=== PATIENT | male | born 1950 | race Caucasian/White ===

== ENCOUNTER 2021-07-04 01:24 | Inpatient (IN) | payer MEDICARE ==
[~2021-07-04] VITALS: Ht 180.3 cm; Wt 94.8 kg
--- NOTE | 2021-07-04 01:31 | NUR ---
MARIALUISA JUNE CALLED AND MESSAGE LET
--- NOTE | 2021-07-04 02:06 | NUR ---
MRSA SWAB FROM [facility] COLLECTED AND SENT TO LAB
--- NOTE | 2021-07-04 02:29 | NUR ---
PHONED SHAYLEE, MESSAGE LEFT
--- NOTE | 2021-07-04 03:40 | NUR ---
SHAYLEE PHONED, ETA 1 HR
--- NOTE | 2021-07-04 05:30 | NUR ---
[facility] NURSE SHAYLEE AT BEDSIDE
[2021-07-04] MEDS ORDERED: LORAZEPAM 1 MG TABLET ONE (05:38)
[2021-07-04] MEDS ORDERED: OLANZAPINE 10 MG VIAL IM ONE ×2 (05:58→06:00)
[2021-07-04] MEDS ORDERED: LORAZEPAM 1 MG TABLET PO ONE (06:00)
--- NOTE | 2021-07-04 06:14 | NUR ---
ROOM 214-2 AFTER CHANGE OF SHIFT
--- NOTE | 2021-07-04 06:58 | NUR ---
REPORT GIVEN TO AGNES HENLEY FOR MARIE
[2021-07-04] MEDS ORDERED: LEVO100T9 PO (07:04)
[2021-07-04] MEDS ORDERED: AMLO-212 PO (07:04)
[2021-07-04] MEDS ORDERED: SERT100T PO (07:04)
[2021-07-04] MEDS ORDERED: GALA12TA15 PO (07:04)
[2021-07-04] MEDS ORDERED: CLON0.5T4 PO (07:04)
--- NOTE | 2021-07-04 07:49 | NUR ---
PATIENT TRANSFERRED TO [facility], IN STABLE CONDITION.
[2021-07-04 08:00] VITALS: BP 145/96
--- NOTE | 2021-07-04 08:00 | NUR ---
GPS RN ADMITTING NOTE: PATIENT 71 Y/O MALE ADMITTED FROM [facility] PLACED ON 5150 FOR DTS,GD. PER HOLD PATIENT VERBALIZE SI, INCREASE ANXIETY.UPON FACE TO FACE ASSESSMENT PATIENT A/O X1 , CONFUSED, DISORGANIZED, UNABLE TO CONTROL HIS BEHAVIOR, EXTREMELY ANXIOUS,RESTLESS, NON COOPERATIVE. PATIENT DENIES SI/HI,DISHEVELED REFUSED ACCU CHECK AND SKIN ASSESSMENT, PT AMBULATORY.DR GTZ NOTIFIED WITH STANDING ORDER, HOME MEDS RECONCILED.ALL BELONGINGS AND CONTRABAND CHECKED. WILL CONTINUE MONITORING FOR SAFETY AND BEHAVIOR Q 15 MIN.
--- NOTE | 2021-07-04 08:22 | NUR ---
Sister Aleksandra was called and made aware of the admission and per sister and the per pt. he doesn't have an allergies on meds and food.
--- NOTE | 2021-07-04 08:29 | NUR ---
GPS/RN PT IS AGGRESSIVE, THREATENED THE MARKETING SUPPORT ASSISTANT OF THE NOTE:" I GOING TO BREAK YOUR FINGER". DR GTZ CALLED FOR THE ORDER, NEW ORDERS RECEIVED AND CARRIED OUT
[2021-07-04] MEDS ORDERED: BLOOD SUGAR DIAGNOSTIC 1 EACH STRIP IN ONE (08:30)
[2021-07-04] MEDS ORDERED: TEMAZEPAM 7.5 MG CAPSULE PO PRN (08:30)
[2021-07-04] MEDS ORDERED: MAG HYDROX/AL HYDROX/SIMETH 30 ML UDC PO PRN (08:30)
[2021-07-04] MEDS ORDERED: LORAZEPAM INJ 2 MG/ML VIAL IM ONE (08:30)
[2021-07-04] MEDS ORDERED: BENZTROPINE MESYLATE (2MG/2ML) 2 MG/2 ML AMPUL IM ONE (08:30)
[2021-07-04] MEDS ORDERED: LORAZEPAM 0.5 MG TABLET PO PRN (08:30)
[2021-07-04] MEDS ORDERED: ACETAMINOPHEN 325 MG TABLET PO PRN (08:30)
[2021-07-04] MEDS ORDERED: MAGNESIUM HYDROXIDE 30 ML UDC PO PRN (08:30)
[2021-07-04] MEDS ORDERED: HALOPERIDOL LACTATE INJ 5 MG/ML VIAL IM ONE (08:30)
[2021-07-04] MEDS: LEVOTHYROXINE SODIUM 100 MCG TABLET PO SCH (09:00)
[2021-07-04] MEDS: AMLODIPINE BESYLATE 5 MG TABLET PO SCH (09:00)
[2021-07-04] MEDS ORDERED: GALANTAMINE HYDROBROMIDE 8 MG TABLET PO SCH (10:00)
--- NOTE | 2021-07-04 11:41 | NUR ---
GPS RN NOTE: PATIENT WAS SEEN AND EXAMINE BY DR GTZ , PATIENT IN BED ASLEEP WITH HIS EYES CLOSED, BED ALARM ON BED IN LOWER POSITION. BP 124/80 P 54 WILL CONTINUE MONITORING
[2021-07-04] MEDS ORDERED: OLANZAPINE 2.5 MG TABLET PO PRN (12:00)
[2021-07-04 16:00] VITALS: BP 124/70
--- NOTE | 2021-07-04 16:14 | NUR ---
GPS/RN NOT MEDICATED FR 1700 PT APPEARS SLEEPING EXCESSIVELY. VSS. NO DISTRESS NOTED
[2021-07-04 16:15] LABS: BASOPHILS % (AUTO) 0.6 % (0.0-2.0); EOSINOPHILS % (AUTO) 3.2 % (0.0-6.0); HEMATOCRIT 39 % (39-51); LYMPHOCYTES # (AUTO) 1.4 K/uL (0.8-4.8); LYMPHOCYTES % (AUTO) 24.1 % (20.0-44.0); MEAN CORPUSCULAR HGB CONC 33 g/dl (31.0-36.0); MEAN CORPUSCULAR VOLUME 88 fL (80-96); MONOCYTES # (AUTO) 0.5 K/uL (0.1-1.30); MONOCYTES % (AUTO) 7.8 % (2.0-12.0); NEUTROPHILS # (AUTO) 3.8 K/uL (1.8-8.9); NEUTROPHILS % (AUTO) 64.3 % (43.0-81.0); PLATELET COUNT (AUTO) 194 K/uL (150-450); RED BLOOD CELL COUNT(AUTO) 4.46 MIL/uL (4.5-6.0); WHITE BLOOD COUNT (AUTO) 5.9 K/uL (4.3-11.0)
[2021-07-04 16:57] LABS: CALCIUM, SERUM 8.3 mg/dL (8.5-10.1); CREATININE 0.9 mg/dL (0.6-1.3)
[2021-07-04] MEDS ORDERED: SERTRALINE HCL 25 MG TABLET PO SCH (17:00)
[2021-07-04 17:56] VITALS: BP 149/83
--- NOTE | 2021-07-04 17:57 | NUR ---
Lab results reported to Dr. Keita and no new order. Addendum: 07/04/21 at 8318 by LAYO BOYLE RN Reported also the V/S
[2021-07-04 18:26] LABS: ALBUMIN 3.7 g/dL (3.4-5.0); BILIRUBIN,TOTAL 0.7 mg/dL (0.2-1.0); TOTAL PROTEIN, SERUM 6.6 g/dL (6.4-8.2)
[2021-07-04 20:13] VITALS: BP 112/56
[2021-07-05 06:50] LABS: ALBUMIN 3.7 g/dL (3.4-5.0); BILIRUBIN,TOTAL 0.7 mg/dL (0.2-1.0); POTASSIUM 4.1 mmol/L (3.5-5.1); TOTAL PROTEIN, SERUM 6.7 g/dL (6.4-8.2)
[2021-07-05 06:52] LABS: CHOLESTEROL 137 mg/dL (<200); HDL CHOLESTEROL 35 mg/dL (40-60); LDL 92 mg/dL (0-99); TRIGLYCERIDES 106 mg/dL (30-150)
[2021-07-05 08:00] VITALS: BP 153/86
[2021-07-05] MEDS: LEVOTHYROXINE SODIUM 100 MCG TABLET PO SCH (08:39)
[2021-07-05] MEDS: AMLODIPINE BESYLATE 5 MG TABLET PO SCH (08:39)
[2021-07-05] MEDS: GALANTAMINE HYDROBROMIDE 4 MG TABLET PO SCH (10:49)
[2021-07-05] MEDS: DIVALPROEX SODIUM 250 MG TABLET.DR PO SCH ×3 (10:49→17:41)
[2021-07-05] MEDS: OLANZAPINE 2.5 MG TABLET PO SCH (10:49)
[2021-07-05 16:00] VITALS: BP 130/82
[2021-07-05 20:35] VITALS: BP 138/78
[2021-07-05] MEDS: LORAZEPAM 0.5 MG TABLET PO PRN (21:24)
--- NOTE | 2021-07-05 21:24 | NUR ---
RN NOTES:ANXIETY PT. C/O FEELING ANXIOUS,PARANOID, ATIVAN 1 MG PO PRN GIVEN PER PT. REQUEST , WILL CONTINUE TO MONITOR.
--- NOTE | 2021-07-05 21:30 | NUR ---
RN NOTES: PT. REFUSED WEEKLY SKIN ASSESSMENT AND PICTURES TAKEN, ENCOURAGED X 3, RISKS AND BENEFITS EXPLINED .PT. STILL REFUSED ,PER PT. MY SKIN IS FINE.
[2021-07-06 08:00] VITALS: BP 150/80
[2021-07-06] MEDS: LEVOTHYROXINE SODIUM 100 MCG TABLET PO SCH (08:38)
[2021-07-06] MEDS: AMLODIPINE BESYLATE 5 MG TABLET PO SCH (08:39)
[2021-07-06] MEDS: DIVALPROEX SODIUM 250 MG TABLET.DR PO SCH ×3 (08:39→16:49)
[2021-07-06] MEDS: GALANTAMINE HYDROBROMIDE 4 MG TABLET PO SCH (08:39)
[2021-07-06] MEDS: OLANZAPINE 2.5 MG TABLET PO SCH ×3 (08:39→16:49)
[2021-07-06] MEDS: LORAZEPAM 0.5 MG TABLET PO PRN (10:15)
[2021-07-06] MEDS: DIVALPROEX SODIUM 125 MG TABLET.DR PO SCH ×2 (12:17→16:49)
[2021-07-06] MEDS ORDERED: DIVALPROEX SODIUM 125 MG CAP.SPRINK PO SCH (13:00)
[2021-07-06 16:00] VITALS: BP 147/79
[2021-07-06 20:00] VITALS: BP 125/75
[2021-07-06 20:10] VITALS: BP 125/75
--- NOTE | 2021-07-07 06:53 | NUR ---
RN NOTE PATIENT SLEPT WELL AT NIGHT, NO BEHAVIOR EPISODE NOTED THROUGH OUT THE SHIFT. WILL ENDORSE TO AM RN FOR CONTINUITY OF CARE.
[2021-07-07 08:00] VITALS: BP 123/82
[2021-07-07] MEDS: LEVOTHYROXINE SODIUM 100 MCG TABLET PO SCH (09:07)
[2021-07-07] MEDS: AMLODIPINE BESYLATE 5 MG TABLET PO SCH (09:07)
[2021-07-07] MEDS: DIVALPROEX SODIUM 125 MG TABLET.DR PO SCH ×3 (09:07→17:28)
[2021-07-07] MEDS: DIVALPROEX SODIUM 250 MG TABLET.DR PO SCH ×3 (09:07→17:28)
[2021-07-07] MEDS: OLANZAPINE 2.5 MG TABLET PO SCH ×3 (09:07→17:28)
[2021-07-07] MEDS: GALANTAMINE HYDROBROMIDE 4 MG TABLET PO SCH (09:08)
--- NOTE | 2021-07-07 12:20 | NUR ---
RN-NOTES NOTED PATIENT WITH YELLING AND TALKING TO SELF IN THE ROOM , WHEELING SELF OUT THE ROOM ANGRY. REDIRECTED AND ATIVAN 0.5MG P.O GIVEN PRN ORDER. WILL CONT. MONITORING FOR SAFETY AND BEHAVIOR. Addendum: 07/07/21 at 1350 by JAMESON DACOSTA RN WRONGLY CHARTED WITH WRONG PATIENT.
[2021-07-07] MEDS ORDERED: DIVALPROEX SODIUM 250 MG TABLET.DR PO SCH (13:00)
--- NOTE | 2021-07-07 13:27 | NUR ---
RN-NOTES VERIFIED TO DR. ULISSES KRISHNAMURTHY DR 375 MG P.O TID ORDER AND GAVE T.O ORDER TO D/C 375 [address] TID AND ORDER DEPAKOTE 250MG P.O TID. NOTED AND CARRIED OUT.
--- NOTE | 2021-07-07 15:05 | NUR ---
Point of Contact SW received a call from pt's sister, Aleksandra Malloy, . Pt's sister stated, "I want to get my brother out." Pt's sister was unwilling to speak to SW and was adamant to speak to someone else to discuss her concerns. She stated that she is able to have the pt return to her private residence at the time of D/C.
[2021-07-07 16:00] VITALS: BP 146/81
[2021-07-07 20:00] VITALS: BP 133/80
[2021-07-07 20:07] VITALS: BP 133/80
[2021-07-07] MEDS: OLANZAPINE 10 MG TABLET PO SCH (21:24)
[2021-07-08 08:00] VITALS: BP 150/76
[2021-07-08] MEDS: OLANZAPINE 2.5 MG TABLET PO SCH ×3 (08:16→16:17)
[2021-07-08] MEDS: DIVALPROEX SODIUM 250 MG TABLET.DR PO SCH ×3 (08:16→16:17)
[2021-07-08] MEDS: LEVOTHYROXINE SODIUM 100 MCG TABLET PO SCH (08:17)
[2021-07-08] MEDS: DIVALPROEX SODIUM 125 MG TABLET.DR PO SCH ×3 (08:17→16:16)
[2021-07-08] MEDS: GALANTAMINE HYDROBROMIDE 4 MG TABLET PO SCH (08:17)
[2021-07-08] MEDS: AMLODIPINE BESYLATE 5 MG TABLET PO SCH (08:17)
--- NOTE | 2021-07-08 14:20 | NUR ---
Initial Discharge Plan Pt plans to return to his prior living arrangement at home with his sister, Aleksandra Malloy, . SW will work with the pt and the MD regarding appropriate D/C planning. SW will form a safe and proper D/C plan.
[2021-07-08 16:00] VITALS: BP 155/92
--- NOTE | 2021-07-08 16:04 | NUR ---
Probable Cause Hearing Pt's 5250 hold is discontinued.
--- NOTE | 2021-07-08 16:05 | NUR ---
D/C Planning SW notified pt's sister, Aleksandra Malloy, , that the pt will be D/C tomorrow back to his prior living arrangement at home w/her. Aleksandra agreed with this D/C plan on 07/07/21. CODY left a voicemail, stating for pt's sister to notify SW by 9 am if she is not agreeable with this plan.
[2021-07-08 19:58] VITALS: BP 132/86
[2021-07-08] MEDS: OLANZAPINE 10 MG TABLET PO SCH (20:55)
[2021-07-09] MEDS ORDERED: SALINE NASAL SPRAY 0.65% 1 BOTTLE BOTTLE NS PRN (03:00)
[2021-07-09 08:00] VITALS: BP 139/85
[2021-07-09] MEDS: LEVOTHYROXINE SODIUM 100 MCG TABLET PO SCH (08:27)
[2021-07-09] MEDS: DIVALPROEX SODIUM 250 MG TABLET.DR PO SCH (08:27)
[2021-07-09] MEDS: OLANZAPINE 2.5 MG TABLET PO SCH (08:27)
[2021-07-09] MEDS: DIVALPROEX SODIUM 125 MG TABLET.DR PO SCH (08:27)
[2021-07-09 08:28] VITALS: BP 139/85
[2021-07-09] MEDS: AMLODIPINE BESYLATE 5 MG TABLET PO SCH (08:28)
[2021-07-09] MEDS: GALANTAMINE HYDROBROMIDE 4 MG TABLET PO SCH (08:29)
--- NOTE | 2021-07-09 10:18 | NUR ---
Dr. Keita gave an order to D/C to a private residence with pt's. sister and to follow up with psych and medical doctors. Psychiatrist provided a prescriptions to 1 week supply of psych meds.
--- NOTE | 2021-07-09 11:07 | NUR ---
Prescriptions fax to [facility] with the fax # of [phone], with the tel# of [phone]. Spoke to Akhil from the pharmacy and confirmed that they received and clarified the meds.
--- NOTE | 2021-07-09 11:25 | NUR ---
RN-DISCHARGE NOTES PATIENT HAD A DISCHARGE ORDER FROM DR. GTZ ( PSYCHIATRIST) DR. TORRES MEDICALLY CLEARED PATIENT FOR DISCHARGE.PATIENT WAS DISCHARGE TO HOME ,PATIENT DID NOT VERBALIZE SI/HI ,DENIES VISUAL/AUDITORY HALLUCINATIONS AT THE TIME OF DISCHARGE. INSTRUCTED PATIENT TO FOLLOW UP WITH PSYCHIATRIST AND PCP APPOINTMENT IN A WEEK OR NEEDED. ALL DISCHARGE MEDICATIONS WAS REVIEWED WITH THE PATIENT WITH UNDERSTANDING. RX WAS GIVEN TO HIM. INSTRUCTED PATIENT TO CALL 911 OR GO TO THE NEAREST EMERGENCY ROOM IN CASE OF EMERGENCY.PATIENT LEFT THE UNIT IN STABLE CONDITION A/O X4 AMBULATORY STEADY GAIT. HE WAS ASSISTED IN THE LOBBY BY ONE CERTIFIED TOWER CLIMBER FOR SAFETY WITH ALL HIS BELONGINGS.WAS DB2 DBA BY SISTER REGINA GAONA VIA PRIVATE CAR.
--- NOTE | 2021-07-09 11:30 | NUR ---
SS D/C NOTE Pt was discharged to [address] [place] [address], to a private residence with pts sister, Aleksandra Malloy, . Pt was picked up by his sister, Aleksandra at around 11 a.m. Pts sister was made aware of this D/C plan. Upon discharge, pt appears to be in a euthymic mood and presented with a calm affect. Pt denies both suicidal and homicidal ideation as well as auditory and visual hallucinations. Pt appears to be alert and oriented x4 (time, place, situation and self). Pt appears to be ambulatory with a steady gait. Pt appears to be well-groomed and appropriately dressed. Pt has a psychiatrist appt on 07/15/21 @ 12:30 [address] with, Dr. Jayant Kc DO, located at [address] [place] [address]; and medical appt on 07/17/21 @10:30 a.m. with soil sampler, Dr. Castaneda, located at [facility] ([address] [place] [address]; ).
== END 2021-07-09 11:25 | disposition home or self-care (01) | DRG 885 ==
LOC: ER 01:57 → GPS 06:55
PROVIDERS: ADMIT Psychiatry & Neurology Psychosomatic Medicine; ATTEND Student in an Organized Health Care Education/Training Program
DX: F25.0 Schizoaffective disorder, bipolar type (principal); R45.851 Suicidal ideations; F39 Unspecified mood [affective] disorder; F29 Unspecified psychosis not due to a substance or known physiological condition; F41.9 Anxiety disorder, unspecified; F03.90 Unspecified dementia, unspecified severity, without behavioral disturbance, psychotic disturbance, mood disturbance, and anxiety; E03.9 Hypothyroidism, unspecified; I10 Essential (primary) hypertension; Z73.6 Limitation of activities due to disability; Z87.828 Personal history of other (healed) physical injury and trauma
CPT/HCPCS: 36415; 80053-TC; 80061-TC; 85025-TC; 87081-TC; J0515; J1630; J2060; J3490